=== PATIENT | male | born 1960 | race Two or more races ===

== ENCOUNTER 2017-09-08 10:08 | Outpatient (CLI) | payer OTHER ==
[~2017-09-08 10:08] MED LIST: ALLEGRA ALLERG180 MG PO; AZELASTINE137 MCG/0. NS; CLARINEX5 MG/TAB; CONEX TABLET1 EACH PO; COZAAR50 MG; FLONASE16 GM NS; GILTUSS TR TAB1 EACH PO; MEDROL4 MG PO; MELOXICAM7.5 MG PO; MOBIC15 MG PO; TUSSI PRES-B L120 M1 PO; VOLTAREN100 GM TP; ZOCOR20 MG PO; ZYRTEC10 M3
== END 2017-09-08 10:38 | disposition home or self-care (01) ==
LOC: PPHC 10:08
DX: R05 Cough (principal)

== ENCOUNTER 2017-12-10 16:18 | Outpatient (CLI) | payer OTHER | END 2017-12-10 16:25 | disposition home or self-care (01) | LOC: RAD 16:18 | DX: M54.5 Low back pain (principal) ==

== ENCOUNTER 2018-06-26 17:03 | Outpatient (CLI) | payer OTHER | END 2018-06-26 17:07 | disposition home or self-care (01) | LOC: RAD 17:03 | DX: M25.561 Pain in right knee (principal) ==

== ENCOUNTER 2018-10-07 16:42 | Outpatient (CLI) | payer OTHER | END 2018-10-07 16:51 | disposition home or self-care (01) | LOC: RAD 16:42 | DX: M65.252 Calcific tendinitis, left thigh (principal); M25.552 Pain in left hip ==

== ENCOUNTER 2019-03-07 12:50 | Outpatient (CLI) | payer OTHER | END 2019-03-07 16:10 | disposition home or self-care (01) | LOC: RAD 12:50 | DX: M25.511 Pain in right shoulder (principal) ==

== ENCOUNTER 2025-01-03 12:41 | Outpatient (CLI) | payer OTHER ==
[2025-01-03 13:12] LABS: PH,URINE 5.5 (5.0-8.0); URINE APPEARANCE Clear; URINE BILIRRUBIN Negative (NEGATIVE); URINE BLOOD Negative; URINE COLOR Yellow; URINE GLUCOSE Negative (NEGATIVE); URINE KETONE Negative (NEGATIVE); URINE LEUKOCYTE Trace; URINE NITRATE Negative; URINE PROTEIN Negative (NEGATIVE); URINE UROBILINOGEN 0.2 E.U./dl
[2025-01-03 13:16] LABS: URINE RBC 3.2 uL (0.0-20.8); URINE WBC 4.4 uL (0.0-23.2)
[2025-01-03 13:17] LABS: URINE BACTERIA 1.2 uL (0.0-1933); URINE EPITHELIAL CELLS 0.7 uL (0.0-38.8)
[2025-01-03 13:22] LABS: HEMATOCRIT 44.2 % (39.0-48.0); HEMOGLOBIN 15.5 g/dL (13-16.00); MEAN CELL VOLUME 87.4 fL (80.0-100.00); MEAN CORPUSCULAR HEMOGLOBIN 30.7 pg (27.00-32.0); MEAN CORPUSCULAR HGB CONC 35.2 g/dl (32.0-36.0); PLATELET COUNT 247 K/uL (150-450); RED BLOOD COUNT 5.05 M/uL (4.00-6.00); RED CELL DISTRIBUTION WIDTH 13.1 % (11.5-14.5)
[2025-01-03 13:33] LABS: ERYTHROCYTE SEDIMENTATION RATE 17 mm/hr
[2025-01-03 14:50] LABS: ALBUMIN 3.5 gm/dL (3.4-5.0); BILIRUBIN TOTAL 1.13 mg/dL (0.3-1.2); CHOL HDL RATIO 2.7 (0-5.0); GFR 74.99; GLOBULINA 3.4 G/DL (2.4-3.5); POTASSIUM 4.45 mEq/L (3.5-5.1); PROSTATIC SPECIFIC ANTIGEN 2.67 NG/ML (0.010-4.00); T4 TOTAL 9.63 UG/DL (4.5-12.1); TOTAL PROTEIN 6.9 gm/dL (6.4-8.2); TSH 0.684 uIU/mL (0.358-3.74)
[2025-01-04 12:17] LABS: T3 TOTAL 1.76 ng/ml (0.846-2.02); VITAMIN D3 25 HYDROXY 32.94 ng/ml (30-120)
== END 2025-01-03 12:43 | disposition home or self-care (01) ==
LOC: LAB 12:41
PROVIDERS: ATTEND Specialist
DX: I10 Essential (primary) hypertension (principal); D64.9 Anemia, unspecified; N39.0 Urinary tract infection, site not specified; E78.2 Mixed hyperlipidemia; E03.9 Hypothyroidism, unspecified; E11.9 Type 2 diabetes mellitus without complications; Z82.61 Family history of arthritis; E55.9 Vitamin D deficiency, unspecified; E53.8 Deficiency of other specified B group vitamins; N41.9 Inflammatory disease of prostate, unspecified; N42.9 Disorder of prostate, unspecified

== ENCOUNTER 2025-03-05 15:06 | Outpatient (CLI) | payer OTHER | END 2025-03-05 15:12 | disposition home or self-care (01) | LOC: RAD 15:06 | PROVIDERS: ATTEND Chiropractor Sports Physician | DX: M25.512 Pain in left shoulder (principal); M25.511 Pain in right shoulder ==